=== PATIENT | male | born 2000 | race Caucasian/White ===

== ENCOUNTER 2022-04-08 13:48 | Emergency (ER) | payer OTHER ==
[~2022-04-08] VITALS: Ht 175.3 cm; Wt 83.2 kg
[2022-04-08 16:03] VITALS: BP 125/80
[2022-04-08] MEDS ORDERED: DOXY-443 PO (17:06)
[2022-04-08 19:17] LABS: GC DNA AMPLIFICATION NEGATIVE (NEGATIVE)
== END 2022-04-08 17:58 | disposition home or self-care (01) ==
LOC: M ED 13:48
DX: N45.1 Epididymitis (principal); Z79.2 Long term (current) use of antibiotics

== ENCOUNTER 2022-06-18 11:55 | Emergency (ER) | payer OTHER ==
[~2022-06-18] VITALS: Ht 175.3 cm; Wt 79.5 kg
[~2022-06-18 11:55] MED LIST: DOXY-443 PO
[2022-06-18] MEDS ORDERED: PENI500T PO (13:41)
[2022-06-18 13:50] VITALS: BP 129/81
== END 2022-06-18 13:54 | disposition home or self-care (01) ==
LOC: M ED 11:55
DX: A38.9 Scarlet fever, uncomplicated (principal)

== ENCOUNTER 2022-07-02 08:26 | Emergency (ER) | payer OTHER ==
[~2022-07-02] VITALS: Ht 175.3 cm; Wt 79.5 kg
[~2022-07-02 08:26] MED LIST changes: +PENI500T PO
[2022-07-02 09:27] LABS: BASO # 0.1 10^3/uL (0.0-0.2); BASO % 0.9 % (0.0-1.0); EOS # 0.2 10^3/uL (0.0-0.5); EOS % 2.2 % (0.0-3.0); HEMATOCRIT 48.6 % (42.0-52.0); HEMOGLOBIN 16.5 g/dl (13.5-17.5); LYMPH # 2.9 10^3/uL (1.5-5.0); MEAN CORPUSCULAR HEMOGLOBIN 30.2 pg (27.0-33.0); MEAN CORPUSCULAR VOLUME 88.8 fl (80.0-96.0); MONO # 0.5 10^3/uL (0.0-0.8); MONO % 6.5 % (2.0-8.0); NEUTROPHILS # 3.4 10^3/uL (1.5-8.5); PLATELET COUNT, AUTOMATED 308 10^3/uL (150-450); RED BLOOD COUNT 5.47 10^6/uL (4.30-6.10)
[2022-07-02 09:49] LABS: C REACTIVE PROTEIN QUANTITATIV < 0.40 MG/DL (<1.0)
[2022-07-02 09:50] LABS: ALBUMIN 4.1 G/DL (3.2-5.2); ALKALINE PHOSPHATASE 82 U/L (46-116); ALT/SGPT 34 U/L (7.0-40); AST/SGOT 26 U/L (<34); BILIRUBIN,DIRECT 0.3 MG/DL (<0.4); BILIRUBIN,TOTAL 1.1 MG/DL (0.3-1.2); BLOOD UREA NITROGEN 13 MG/DL (9-23); CALCIUM LEVEL 9.3 MG/DL (8.5-10.1); CARBON DIOXIDE LEVEL 29 MMOL/L (20-31); CHLORIDE LEVEL 104 MMOL/L (98-107); CREATININE FOR GFR 0.95 MG/DL (0.70-1.30); GLUCOSE, FASTING 105 MG/DL (60-100); POTASSIUM SERUM 4.1 MMOL/L (3.5-5.1); SODIUM LEVEL 137 MMOL/L (136-145); TOTAL PROTEIN 7.3 G/DL (5.7-8.2)
[2022-07-02 10:05] LABS: MONO REFLEX EBV COMP NEGATIVE (NEGATIVE)
[2022-07-02 11:28] LABS: ERYTHROCYTE SEDIMENTATION RATE 3 mm/hr (0-15)
[2022-07-02] MEDS ORDERED: CALC0.009 TOP (11:37)
[2022-07-02] MEDS ORDERED: CLOB5CR TOP (11:37)
[2022-07-02 11:57] VITALS: BP 131/80
[2022-07-03 18:07] LABS: EBV VIRAL CAPSID AG IgG 61.3 U/mL (0.0-17.9); EBV VIRAL CAPSID AG IgM <36.0 U/mL (0.0-35.9)
== END 2022-07-02 11:59 | disposition home or self-care (01) ==
LOC: M ED 08:26
DX: L40.4 Guttate psoriasis (principal); F17.200 Nicotine dependence, unspecified, uncomplicated; Z79.621 Long term (current) use of calcineurin inhibitor; Z79.2 Long term (current) use of antibiotics

== ENCOUNTER 2022-11-09 13:54 | Emergency (ER) | payer OTHER ==
[~2022-11-09] VITALS: Ht 175.3 cm; Wt 88.8 kg
[2022-11-09 13:54] VITALS: BP 157/72; TEMP 98.1; O2SAT 97
[~2022-11-09 13:54] MED LIST changes: +CALC0.009 TOP; +CLOB5CR TOP
[2022-11-09] MEDS ORDERED: BETA115CR TOP (15:52)
== END 2022-11-09 16:13 | disposition home or self-care (01) ==
LOC: M ED 13:54
DX: L40.0 Psoriasis vulgaris (principal); Z79.899 Other long term (current) drug therapy